=== PATIENT | male | born 1970 | race Caucasian/White ===

== ENCOUNTER → 2023-04-04 08:42 | Outpatient (CLI) | payer OTHER, SELFPAY ==
--- NOTE | 2023-04-04 08:50 | DI.MRI.S_ITS ---
PROCEDURE: MR LOWER LEG RT WO CON INDICATIONS: Unspecified injury of right Achilles tendon, initi TECHNIQUE: Noncontrast coronal and sagittal T1 spin echo and STIR; axial T1 spin echo and T2 fast spin echo with fat saturation through the right lower leg. COMPARISON: None. FINDINGS: Image quality: Excellent. Bones: The visualized bone marrow demonstrates normal signal on all sequences. The overlying cortex appears intact. No fractures lines or intra-osseous lesions. Soft tissues: There is edema involving distal portion of medial head gastrocnemius muscle with fluid situated between medial head of gastrocnemius muscle and medial portion of soleus muscle concerning for plantaris tendon rupture. The Achilles tendon is intact. No other area of abnormal soft tissue edema or drainable fluid collection. IMPRESSION: 1. Suggestion of low-grade strain/partial-thickness tear involving distal medial portion of gastrocnemius muscle with fluid extending along tendon sheath between distal gastrocnemius muscle and medial portion of soleus muscle concerning for plantaris tendon rupture. 2. The Achilles tendon is intact. 3. No marrow edema. No fracture or dislocation. No tibial stress fracture or abnormal stress reaction. Dictated by: Chris Tiwari M.D. on 04/06/2023 at 10:52 Approved by: Chris Tiwari M.D. on 04/06/2023 at 10:58
== END ==
PROVIDERS: Referring Provider Physician Assistant Medical; Visit Provider Physician Assistant Medical
DX: S86.001A Unspecified injury of right Achilles tendon, initial encounter (principal)
CPT/HCPCS: 73718